=== PATIENT | female | born 1985 | race Hispanic/Latino ===

== ENCOUNTER 2018-02-12 07:59 | Outpatient (CLI) | payer OTHER | END 2018-02-12 08:00 | disposition home or self-care (01) | LOC: BICULT 07:59 | PROVIDERS: ATTEND Internal Medicine | DX: R10.2 Pelvic and perineal pain (principal) | CPT/HCPCS: 76856 ==

== ENCOUNTER 2018-06-07 08:34 | Outpatient (CLI) | payer OTHER ==
--- NOTE | 2018-06-07 10:36 | ULT ---
OB ULTRASOUND: DATE: 06/07/2018. HISTORY: Evaluate anatomy. Patient is positive for . FINDINGS: There is a single intrauterine gestation in variable presentation. Cardiac Doppler demonstrates feta l heart tones with a heart rate of 146 b.p.m. The placenta is located posteriorly without evid ence of placenta previa. There is a normal amount of amniotic fluid within an amniotic fluid index o f 19.84 cm. The cervical length measures approximately 5 cm. MEASUREMENTS: Biparietal diameter 4.4 cm, 19 weeks 3 days Head circumference 17.25 cm, 19 weeks 6 days Abdominal circumference 14.73 cm, 20 weeks 1 day Femur length 3.39 cm, 20 weeks 5 days The estimated gestational age by ultrasound is 20 weeks and 1 day with an LEEANNA on 10/24/2018. Gestatio nal age by the last menstrual period is 19 weeks and 6 days. The weight is 340 gm (12 ounces). This represents 67th percentile for weight. The cerebellum, visualized portions of the spine, 4 chamber heart, stomach, bilateral kidneys, and urinary bladder demonstrate a normal sonographic appearance. The cord insertion is not well deli neated and the expected location of the cord insertion is evidenced by flow, no gross abnormality is seen. There is flow on either side of the urinary bladder which suggests a 3-vessel cord, although a 3-vessel cord is not delineated. No definite anomalies are seen. IMPRESSION: 1. Single intrauterine gestation in variable presentation. heart tones are documented. 2. Estimated gestational age by ultrasound is 20 weeks and 1 day with an estimated date of delivery on 10/24/2018. 3. estimated weight is 340 gm (12 ounces). 4. Amniotic fluid index is 19.8 cm. POS: [facility]
== END 2018-06-07 08:35 | disposition home or self-care (01) ==
LOC: BICULT 08:34
PROVIDERS: ATTEND Family Medicine
DX: O09.892 Supervision of other high risk pregnancies, second trimester (principal); Z3A.20 20 weeks gestation of pregnancy
CPT/HCPCS: 76805

== ENCOUNTER 2018-09-25 11:25 | Day surgery (SDC) | payer OTHER ==
--- NOTE | 2018-09-25 13:57 | SS ---
DATE OF SERVICE: 09/25/2018 PRIMARY OB: Dr. Michael Holland. CHIEF COMPLAINT: Nonreactive NST. HISTORY OF PRESENT ILLNESS: The patient is a 32-year-old female, G3, P2, with an intrauterine at 35 weeks and 4 days, who presented to Labor and Delivery from clinic after having a nonreactive NST during routine testing. The patient denies any abdominal pains, leaking fluid, or vaginal bleeding. She denies any fever, fall, headache, chest pain, shortness of breath, nausea, vomiting, diarrhea, constipation, knee problems, or muscle weakness. She does report hip problems with this . She denies any new rashes. She has been maintained well with diet control. PAST MEDICAL HISTORY: Negative. ALLERGIES: NO KNOWN DRUG ALLERGIES. MEDICATIONS: vitamins. SOCIAL HISTORY: Denies drug, alcohol, or tobacco use. OB LABS: Blood type is O positive. Antibody screen is negative. RPR is nonreactive. HIV is nonreactive. Hepatitis B surface antigen is negative. She is rubella immune. Drug screen is negative. One-hour Glucola is 182. GBS results unavailable. REVIEW OF SYSTEMS: Per HPI. PHYSICAL EXAMINATION: VITAL SIGNS: Blood pressure is 109/61, heart rate of 94, saturating 98% on room air. GENERAL: She appears to be in no acute distress. She is alert, oriented, cooperative, and pleasant to interact with. HEAD: Normocephalic and atraumatic. LUNGS: Clear to auscultation bilaterally. HEART: Has regular rate and rhythm. ABDOMEN: Nontender and gravid. EXTREMITIES: Nontender with minimal edema. : Exam has been deferred. Here for nonreactive NST in the clinic, shows a baseline in the 140s with moderate long-term variability. She did, at the end of the testing, finally show 15 x 15 accelerations after approximately 45 minutes. Tocometer showing no contractions, with an MATIAS of 11.9 cm. ASSESSMENT AND PLAN: The patient is a 32-year-old female with an intrauterine at 35 weeks and 4 days, who came from the clinic with a nonreactive NST. The patient has been given reassurance with a BPP of 8/8 and the NST ultimately reactive here. She has been discharged home with a reassuring fetus and instructions to follow up with her primary OB as scheduled next Monday. Job ID: [id number]
--- NOTE | 2018-09-25 14:46 | ULT ---
ULTRASOUND BIOPHYSICAL PROFILE: HISTORY: distress. FINDINGS: A single live intrauterine gestation is seen, with a heart rate of 137 beats per minute. MATIAS m easures 11.9 cm. The placenta is posteriorly located without evidence of placenta previa. pos ition is vertex. There is normal tone, breathing, movement, and amniotic fluid. IMPRESSION: Ultrasound biophysical profile score is 8/8. POS: [facility]
== END 2018-09-25 13:24 | disposition home or self-care (01) ==
LOC: L&D/OP 11:25
PROVIDERS: ATTEND Family Medicine
DX: O36.8330 Maternal care for abnormalities of the fetal heart rate or rhythm, third trimester, not applicable or unspecified (principal); Z3A.35 35 weeks gestation of pregnancy; Z79.899 Other long term (current) drug therapy
CPT/HCPCS: 76819; 99282

== ENCOUNTER 2018-10-21 20:00 | Inpatient (IN) | payer MEDICAID, OTHER, SELFPAY ==
[~2018-10-21 20:00] MED LIST: Bupivacaine/Epinephrine 0.25% 30 ML VIAL ONE
[2018-10-21 20:49] VITALS: BMI 32.5
[2018-10-21] MEDS ORDERED: Misoprostol 200 MCG TAB PR PRN (20:50)
[2018-10-21] MEDS ORDERED: Methylergonovine 0.2 MG/ML VIAL IM PRN (20:50)
[2018-10-21] MEDS ORDERED: NS / Oxytocin 40 units/1000ml 1,000 ML IV PRN (20:50)
[2018-10-21] MEDS ORDERED: Ondansetron PF 4 MG/2 ML Vial IVP PRN (20:50)
[2018-10-21] MEDS ORDERED: HYDROcodone/Acetaminophen 5/325 mg Tablet PO PRN (20:50)
[2018-10-21] MEDS ORDERED: Carboprost 250 MCG/ML AMP IM PRN (20:50)
[2018-10-21] MEDS ORDERED: Promethazine HCl 25 MG/ML VIAL IM PRN (20:50)
[2018-10-21] MEDS ORDERED: Lidocaine 1% (PF) 30 ML VIAL SC PRN (20:50)
[2018-10-21] MEDS ORDERED: Diphenoxylate HCl/Atropine Tablet PO PRN (20:50)
[2018-10-21] MEDS: Lactated Ringer's 1,000 ML IV SCH (20:55)
[2018-10-21] MEDS ORDERED: NS w/ Oxytocin 10 units 500 ML IV SCH (21:00)
[2018-10-21] MEDS: NS w/ Oxytocin 10 units 500 ML IV SCH (21:04)
[2018-10-21] MEDS: Misoprostol 100 MCG TAB PO SCH (21:15)
[2018-10-21 21:26] LABS: Hemoglobin 12.5 g/dL (12.0-16.0); Mean Corpuscular HGB CONC 34.1 g/dL (32.0-36.0); Mean Corpuscular Volume 90.8 fL (78.0-98.0); Mean Platelet Volume 8.1 fL (7.4-10.4); Platelet Count 265 thou/uL (130-400); RBC Distribution Width 12.8 % (11.5-14.5); Red Blood Cell (RBC) Count 4.02 mill/uL (4.20-5.40); White Blood Cell (WBC) Count 9.1 thou/uL (4.8-10.8)
[2018-10-21 21:36] LABS: Glucose 91 mg/dL (70-105)
[2018-10-21 21:59] LABS: Syphilis Antibody Nonreactive (Nonreactive); Syphilis Antibody Index 0.04 S/CO (<1.00 Non-Reactive)
[2018-10-22 00:04] LABS: HBSAg Index 0.33 S/CO (0-0.99); Hep B Surf Ag Non-Reactive S/CO (NonReactive)
[2018-10-22] MEDS: Misoprostol 100 MCG TAB PO SCH (03:11)
[2018-10-22] MEDS: Butorphanol Tartrate 1 MG/ML VIAL SLOW IVP PRN ×2 (03:12→06:05)
[2018-10-22] MEDS: Lactated Ringer's 1,000 ML IV SCH ×2 (03:17→08:00)
[2018-10-22] MEDS: NS w/ Oxytocin 10 units 500 ML IV SCH (05:40)
[2018-10-22] MEDS ORDERED: Fentanyl 4 mcg/Bup 0.1% Cadd 100 ML ONE (07:01)
[2018-10-22] MEDS ORDERED: Lactated Ringer's 500 ML IV PRN (07:43)
[2018-10-22] MEDS ORDERED: Promethazine HCl 25 MG/ML VIAL IM PRN (07:43)
[2018-10-22] MEDS ORDERED: Naloxone HCl 0.4 mg/ml Vial IVP PRN ×2 (07:43)
[2018-10-22] MEDS ORDERED: diphenhydrAMINE 50 MG/ML VIAL IVP PRN (07:43)
[2018-10-22] MEDS ORDERED: Ondansetron PF 4 MG/2 ML Vial IVP PRN ×2 (07:43→11:32)
[2018-10-22] MEDS ORDERED: Eucerin (Mineral Oil/Petrolatum,White) 30 gm Jar TOP PRN (07:43)
[2018-10-22] MEDS ORDERED: ePHEDrine/0.9% NaCl/PF SYRINGE 50 mg/10 ml SLOW IVP PRN (07:43)
[2018-10-22] MEDS ORDERED: Acetaminophen 325 MG TAB PO PRN (07:43)
[2018-10-22] MEDS ORDERED: Fentanyl 4 mcg/Bupivacaine 0.1% Cassette 100 ML EPIDURAL SCH (07:45)
[2018-10-22] MEDS ORDERED: Communication Order-Pharmacy FS SCH (07:45)
[2018-10-22] MEDS ORDERED: NS / Oxytocin 40 units/1000ml 1,000 ML IV SCH (11:32)
[2018-10-22] MEDS ORDERED: diphenhydrAMINE 25 MG CAP PO PRN (11:32)
[2018-10-22] MEDS ORDERED: Benzocaine-Menthol 82.5 ML CAN TOP PRN (11:32)
[2018-10-22] MEDS ORDERED: Milk Of Magnesia 30 ML UDCUP PO PRN (11:32)
[2018-10-22] MEDS ORDERED: Lanolin Ointment 7 GM TUBE TOP PRN (11:32)
[2018-10-22] MEDS ORDERED: Bisacodyl 10 MG SUPP PR PRN (11:32)
[2018-10-22] MEDS ORDERED: HYDROcodone/Acetaminophen 5/325 mg Tablet PO PRN ×2 (11:32)
[2018-10-22] MEDS: Ibuprofen 800 MG TAB PO SCH ×2 (14:36→21:25)
[2018-10-22] MEDS: Ferrous Sulfate 325 MG TAB PO SCH (17:32)
[2018-10-22] MEDS: Docusate Calcium (SURFAK) 240 MG CAP PO SCH (21:25)
[2018-10-23] MEDS: Ibuprofen 800 MG TAB PO SCH (05:10)
[2018-10-23 05:37] VITALS: TEMP 98
[2018-10-23 07:44] VITALS: BP 91/51
[2018-10-23 08:38] LABS: Hemoglobin 10.8 g/dL (12.0-16.0); Mean Corpuscular HGB CONC 34.3 g/dL (32.0-36.0); Mean Corpuscular Hemoglobin 31.5 pg (27.0-31.0); Mean Corpuscular Volume 91.8 fL (78.0-98.0); Mean Platelet Volume 8.1 fL (7.4-10.4); Platelet Count 199 thou/uL (130-400); RBC Distribution Width 12.8 % (11.5-14.5); Red Blood Cell (RBC) Count 3.43 mill/uL (4.20-5.40)
[2018-10-23] MEDS: Docusate Calcium (SURFAK) 240 MG CAP PO SCH (08:47)
[2018-10-23] MEDS: Ferrous Sulfate 325 MG TAB PO SCH (08:48)
[2018-10-23] MEDS ORDERED: Prenatal Vitamin 1 TAB PO SCH (09:00)
== END 2018-10-23 15:30 | disposition home or self-care (01) | DRG 807 ==
LOC: L&D 20:14 → 3SW 10-22 12:12
PROVIDERS: ADMIT Family Medicine; ATTEND Family Medicine
PROC: 10E0XZZ Delivery of Products of Conception, External Approach (ICD-10-PCS; principal; 2018-10-22)
PROC: 10907ZC Drainage of Amniotic Fluid, Therapeutic from Products of Conception, Via Natural or Artificial Opening (ICD-10-PCS; 2018-10-22)
PROC: 3E0P7VZ Introduction of Hormone into Female Reproductive, Via Natural or Artificial Opening (ICD-10-PCS; 2018-10-22)
PROC: 3E033VJ Introduction of Other Hormone into Peripheral Vein, Percutaneous Approach (ICD-10-PCS; 2018-10-22)
DX: O24.420 Gestational diabetes mellitus in childbirth, diet controlled (principal); Z37.0 Single live birth; O77.0 Labor and delivery complicated by meconium in amniotic fluid; Z3A.39 39 weeks gestation of pregnancy
CPT/HCPCS: 36415; 36416; 51702; 82947; 85027; 86780; 86850; 86900; 86901; 87340; J0595; J2001; J2405; J2590

== ENCOUNTER 2019-02-11 12:08 | Outpatient (CLI) | payer OTHER ==
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
== END 2019-02-11 12:09 | disposition home or self-care (01) ==
LOC: BICRAD 12:08
DX: M25.512 Pain in left shoulder (principal)

== ENCOUNTER 2019-03-03 18:27 | Emergency (ER) | payer MEDICAID, SELFPAY ==
[2019-03-03 19:25] LABS: #Basophils 0.1 thou/uL (0.0-0.2); #Eosinphils 0.2 thou/uL (0.0-0.7); #Lymphocytes 2.8 thou/uL (1.20-3.40); #Monocytes 0.7 thou/uL (0.11-0.59); #Neutrophils 4.8 thou/uL (1.40-6.50); %Basophils 0.7 % (0.0-1.0); %Eosinophils 2.1 % (0.0-10.0); %Lymphocytes 32.9 % (21.0-51.0); %Neutrophils 56.2 % (42.0-75.0); Hemoglobin 13.4 g/dL (12.0-16.0); Mean Corpuscular HGB CONC 34.9 g/dL (32.0-36.0); Mean Corpuscular Hemoglobin 31.7 pg (27.0-31.0); Mean Corpuscular Volume 90.8 fL (78.0-98.0); Mean Platelet Volume 7.5 fL (7.4-10.4); Platelet Count 322 thou/uL (130-400); RBC Distribution Width 11.4 % (11.5-14.5); Red Blood Cell (RBC) Count 4.22 mill/uL (4.20-5.40); White Blood Cell (WBC) Count 8.6 thou/uL (4.8-10.8)
[2019-03-03 19:34] LABS: Bilirubin Negative (Negative); Blood, Urine 2+ (Negative); Clarity Clear (Clear); Glucose, Urine (Dipstick) Normal (Negative); Leukocyte Negative Leu/uL (Negative); Nitrite Negative (Negative); Protein, Urine (Dipstick) Negative (Neg-Trace); Urobilinogen Normal mg/dL (Less than 2)
[2019-03-03 19:35] LABS: Pregnancy Test - Urine (BHCG) Negative (Negative); Pregu Control Background? CLEAR/WHITE (CLR/WHITE); Pregu Control Bar Appear? YES (CONTROL BAR); Specific Gravity 1.006 (1.002-1.036)
[2019-03-03 19:37] LABS: Bacteria/HPF None Seen HPF (None Seen); RBC/HPF None Seen HPF (0-3); Squamous Epithelial 0-3 HPF (0-3); WBC/HPF None Seen HPF (0-3)
== END 2019-03-03 20:37 | disposition home or self-care (01) ==
LOC: ERS 18:27
DX: N93.9 Abnormal uterine and vaginal bleeding, unspecified (principal)
CPT/HCPCS: 81003; 81015; 81025; 85025; 99284

== ENCOUNTER 2020-11-06 15:29 | Outpatient (CLI) | payer OTHER | END 2020-11-06 15:30 | disposition home or self-care (01) | LOC: BICULT 15:29 | PROVIDERS: ATTEND Family Medicine | DX: Z34.83 Encounter for supervision of other normal pregnancy, third trimester (principal) | CPT/HCPCS: 76805 ==

== ENCOUNTER 2025-05-19 14:19 | Outpatient (CLI) | payer MEDICAID, OTHER | END 2025-05-19 14:20 | disposition home or self-care (01) | LOC: ULT 14:19 | PROVIDERS: ATTEND Urology | DX: N20.0 Calculus of kidney (principal); R31.29 Other microscopic hematuria | CPT/HCPCS: 76770 ==